=== PATIENT | male | born 1990 | race Caucasian/White ===

== ENCOUNTER 2024-08-02 15:35 | Emergency (ER) | payer OTHER ==
[2024-08-02 15:45] VITALS: BP 145/89; PULSE 96; RESP 18; TEMP 98.4; BMI 33.9
[2024-08-02] MEDS ORDERED: KETOROLAC TROMETHAMINE 15 MG/ML VIAL ONE (17:26)
[2024-08-02 17:33] LABS: BASO % 0.5 % (0-2.0); EOS % 0.9 % (0-4.5); HEMATOCRIT 38.1 % (35.4-49); LYMPH % 19.8 % (8-40); MCH 28.6 pg (25.7-33.7); MCHC 34.2 g/dl (32.0-35.9); MEAN CELL VOLUME 83.6 fl (80-96); MEAN PLT VOLUME 6.8 fl (7.5-11.1); MONO % 5.3 % (3.8-10.2); NEUT % 73.5 % (42.8-82.8); PLATELET COUNT 487 10^3/uL (134-434); RBC 4.56 M/mm3 (4.00-5.60); RDW 13.7 % (11.9-15.9)
[2024-08-02 17:36] LABS: EPI CELLS 2 /uL (0-25.1); HYALINE CASTS 0 /uL (0-3.1); PH,URINE 5.5 (5.0-8.0); URINE APPEARANCE CLEAR; URINE BACTERIA 3 /uL (0-1359); URINE BILIRUBIN NEGATIVE (NEGATIVE); URINE COLOR YELLOW; URINE GLUCOSE (UA) NEGATIVE (NEGATIVE); URINE KETONE NEGATIVE (NEGATIVE); URINE LEUK ESTERASE NEGATIVE (NEGATIVE); URINE NITRITE NEGATIVE (NEGATIVE); URINE PROTEIN NEGATIVE (NEGATIVE); URINE RBC 415 /uL (0-23.9); URINE UROBILINOGEN 0.2 mg/dL (0.2-1.0); URINE WBC 13 /uL (0-25.8)
[2024-08-02] MEDS: KETOROLAC TROMETHAMINE 15 MG/ML VIAL IVPUSH ONE (17:38)
[2024-08-02 18:35] LABS: POTASSIUM 4.8 mmol/L (3.5-5.1)
[2024-08-02 18:39] LABS: ALBUMIN 3.4 g/dl (3.4-5.0); CALCIUM 9.2 mg/dL (8.5-10.1)
[2024-08-02 18:40] LABS: BLOOD UREA NITROGEN 19.8 mg/dL (7-18)
[2024-08-02 18:43] LABS: CREATININE 1.3 mg/dL (0.55-1.3)
[2024-08-02 18:44] LABS: BILIRUBIN,TOTAL 0.2 mg/dL (0.2-1); TOT PROT 7.1 g/dl (6.4-8.2)
[2024-08-02 19:32] LABS: HIV INTERPRETATION NEGATIVE (NEGATIVE)
== END 2024-08-02 19:20 | disposition home or self-care (01) ==
LOC: JER 15:35
PROC: 3E0333Z Introduction of Anti-inflammatory into Peripheral Vein, Percutaneous Approach (ICD-10-PCS; principal; 2024-08-02)
DX: N20.0 Calculus of kidney (principal); R10.9 Unspecified abdominal pain
CPT/HCPCS: 36415; 74176-TC; 80053; 81003; 85025; 86803; 87086; 87389; 99284-25

== ENCOUNTER 2024-08-30 02:43 | Emergency (ER) | payer OTHER ==
[2024-08-30 02:54] VITALS: PULSE 98; RESP 18; TEMP 98.6; BMI 32.3
[2024-08-30 03:36] LABS: BASO % 0.2 % (0-2.0); EOS % 0.7 % (0-4.5); HEMATOCRIT 42.2 % (35.4-49); HEMOGLOBIN 14.2 GM/dL (11.7-16.9); MCHC 33.6 g/dl (32.0-35.9); MEAN CELL VOLUME 83.1 fl (80-96); MEAN PLT VOLUME 7.6 fl (7.5-11.1); MONO % 6.6 % (3.8-10.2); NEUT % 75.5 % (42.8-82.8); PLATELET COUNT 307 10^3/uL (134-434); RBC 5.08 M/mm3 (4.00-5.60); RDW 14.6 % (11.9-15.9); WHITE BLOOD COUNT 7.2 K/mm3 (4.0-10.0)
[2024-08-30] MEDS ORDERED: KETOROLAC TROMETHAMINE 15 MG/ML VIAL ONE (03:38)
[2024-08-30 03:43] LABS: INR 0.92 (0.83-1.09); PROTHROMBIN TIME (PATIENT) 10.4 SEC (9.7-13.0)
[2024-08-30] MEDS: KETOROLAC TROMETHAMINE 15 MG/ML VIAL IVPUSH ONE (03:45)
[2024-08-30 03:46] LABS: ACTIVATED PTT 28.8 SECONDS (25.2-36.5)
[2024-08-30 03:56] LABS: PH,URINE 5.5 (5.0-8.0); URINE APPEARANCE CLEAR; URINE BILIRUBIN NEGATIVE (NEGATIVE); URINE COLOR YELLOW; URINE GLUCOSE (UA) NEGATIVE (NEGATIVE); URINE KETONE NEGATIVE (NEGATIVE); URINE LEUK ESTERASE NEGATIVE (NEGATIVE); URINE NITRITE NEGATIVE (NEGATIVE); URINE PROTEIN NEGATIVE (NEGATIVE); URINE UROBILINOGEN 0.2 mg/dL (0.2-1.0)
[2024-08-30 04:01] LABS: POTASSIUM 4.2 mmol/L (3.5-5.1)
[2024-08-30 04:04] LABS: ALBUMIN 3.9 g/dl (3.4-5.0); BLOOD UREA NITROGEN 21.6 mg/dL (7-18); CALCIUM 9.2 mg/dL (8.5-10.1)
[2024-08-30 04:07] LABS: CREATININE 1.2 mg/dL (0.55-1.3)
[2024-08-30 04:09] LABS: BILIRUBIN,TOTAL 0.3 mg/dL (0.2-1); TOT PROT 7.4 g/dl (6.4-8.2)
[2024-08-30 04:41] VITALS: BP 148/98
[2024-08-30 05:06] LABS: HIV INTERPRETATION NEGATIVE (NEGATIVE)
== END 2024-08-30 04:44 | disposition home or self-care (01) ==
LOC: JER 02:43
PROC: 3E0333Z Introduction of Anti-inflammatory into Peripheral Vein, Percutaneous Approach (ICD-10-PCS; principal; 2024-08-30)
DX: R10.32 Left lower quadrant pain (principal); R11.0 Nausea
CPT/HCPCS: 36415; 80053; 81003; 83690; 85025; 85610; 85730; 86803; 87086; 87389; 99284-25

== ENCOUNTER 2024-10-08 07:34 | Day surgery (SDC) | payer OTHER ==
[2024-10-05 10:22] VITALS: BMI 31.1
[2024-10-08 15:25] VITALS: RESP 16
[2024-10-08] MEDS ORDERED: MIDAZOLAM HCL 2 MG/2 ML SINGLE DOSE VIAL ONE (16:59)
[2024-10-08 17:56] VITALS: BP 141/89; PULSE 98; TEMP 97.7
== END 2024-10-08 18:20 | disposition home or self-care (01) ==
LOC: JASU-SURG 07:34
PROVIDERS: ATTEND Urology
PROC: 0TF3XZZ Fragmentation in Right Kidney Pelvis, External Approach (ICD-10-PCS; principal; 2024-10-08 17:00)
DX: N20.0 Calculus of kidney (principal)

== ENCOUNTER 2024-10-26 21:50 | Emergency (ER) | payer OTHER ==
[2024-10-26 21:53] VITALS: RESP 18; TEMP 98.8; BMI 31.9
[2024-10-26] MEDS ORDERED: MORPHINE SULFATE 2 MG/ML SYRINGE ONE (22:39)
[2024-10-26] MEDS: morphine CARPU-JECT 2 MG/1 ML DISP.SYRIN IVPUSH ONE (22:49)
[2024-10-26 22:58] LABS: BASO % 0.4 % (0-2.0); EOS % 0.7 % (0-4.5); HEMATOCRIT 42.5 % (35.4-49); HEMOGLOBIN 14.3 GM/dL (11.7-16.9); LYMPH % 35.1 % (8-40); MCH 28.1 pg (25.7-33.7); MCHC 33.6 g/dl (32.0-35.9); MEAN CELL VOLUME 83.6 fl (80-96); MEAN PLT VOLUME 7.2 fl (7.5-11.1); MONO % 11.6 % (3.8-10.2); NEUT % 52.2 % (42.8-82.8); PLATELET COUNT 320 10^3/uL (134-434); RBC 5.08 M/mm3 (4.00-5.60); RDW 14.6 % (11.9-15.9); WHITE BLOOD COUNT 6.3 K/mm3 (4.0-10.0)
[2024-10-26 23:15] LABS: POTASSIUM 3.8 mmol/L (3.5-5.1)
[2024-10-26 23:17] LABS: CALCIUM 9.2 mg/dL (8.5-10.1)
[2024-10-26 23:18] LABS: ALBUMIN 3.9 g/dl (3.4-5.0); BLOOD UREA NITROGEN 16.8 mg/dL (7-18)
[2024-10-26 23:19] LABS: EPI CELLS 7 /uL (0-25.1); HYALINE CASTS 2 /uL (0-3.1); PH,URINE 5.5 (5.0-8.0); URINE APPEARANCE CLEAR; URINE BACTERIA 8 /uL (0-1359); URINE BILIRUBIN NEGATIVE (NEGATIVE); URINE COLOR YELLOW; URINE GLUCOSE (UA) NEGATIVE (NEGATIVE); URINE KETONE TRACE (NEGATIVE); URINE LEUK ESTERASE NEGATIVE (NEGATIVE); URINE NITRITE NEGATIVE (NEGATIVE); URINE PROTEIN TRACE (NEGATIVE); URINE RBC 28 /uL (0-23.9); URINE WBC 13 /uL (0-25.8)
[2024-10-26 23:22] LABS: BILIRUBIN,TOTAL 0.4 mg/dL (0.2-1)
[2024-10-26 23:23] LABS: TOT PROT 7.1 g/dl (6.4-8.2)
[2024-10-26] MEDS ORDERED: KETOROLAC TROMETHAMINE 15 MG/ML VIAL ONE (23:28)
[2024-10-26] MEDS: KETOROLAC TROMETHAMINE 15 MG/ML VIAL IVPUSH ONE (23:33)
[2024-10-26 23:45] VITALS: BP 153/114; PULSE 80
[2024-10-27] MEDS ORDERED: TAMSULOSIN HCL 0.4 MG CAP ONE (02:44)
[2024-10-27] MEDS: TAMSULOSIN HCL 0.4 MG CAP PO ONE (02:50)
[2024-10-27] MEDS: SODIUM CHLORIDE 0.9% 500 ML INFUS.BAG IV ONE (02:50)
== END 2024-10-27 04:15 | disposition home or self-care (01) ==
LOC: JER 21:50
PROC: 3E0333Z Introduction of Anti-inflammatory into Peripheral Vein, Percutaneous Approach (ICD-10-PCS; principal; 2024-10-26)
PROC: 3E033NZ Introduction of Analgesics, Hypnotics, Sedatives into Peripheral Vein, Percutaneous Approach (ICD-10-PCS; 2024-10-26)
DX: N13.2 Hydronephrosis with renal and ureteral calculous obstruction (principal); M54.50 Low back pain, unspecified
CPT/HCPCS: 36415; 74176-TC; 80053; 81003; 85025; 87086; 99284-25